=== PATIENT | female | born 1965 | race Caucasian/White ===

== ENCOUNTER 2017-01-25 17:55 | Emergency (ER) | payer MEDICAID ==
[2017-01-25 18:03] VITALS: RESP 18
--- NOTE | 2017-01-25 18:12 | CPEKG ---
Heart Rate: 66 RR Interval: 909 P-R Interval: 180 QRSD Interval: 78 QT Interval: 404 QTC Interval: 424 P [place]: 8 QRS [place]: -4 T Wave [place]: 27 EKG Severity - NORMAL ECG - EKG Impression: SINUS RHYTHM Electronically Signed By: Willard De La Rosa 25-Jan-2017 21:19:50
[2017-01-25 18:24] LABS: % IMMATURE GRANULYOCYTES 0.2 % (0.0-1.1); ABSOLUTE IMMATURE GRANULOCYTES 0.02 10^3/uL (0.00-0.10); ADD DIFF? NO; ADD MORPH? NO; ADD SCAN? NO; ATYPICAL LYMPHOCYTE FLAG 10 (0-99); FRAGMENT RBC FLAG 0 (0-99); HEMATOCRIT 41.6 % (38.0-47.0); HEMOGLOBIN 14.1 g/dL (12.6-16.3); LEFT SHIFT FLG 0 (0-99); LIPEMIA HEMOLYSIS FLAG 90 (0-99); MEAN CELL HEMOGLOBIN 30.3 pg (27.9-34.1); MEAN CELL HEMOGLOBIN CONCENTR. 33.9 g/dL (32.4-36.7); MEAN CELL VOLUME 89.3 fL (81.5-99.8); MEAN PLATELET VOLUME 9.4 fL (8.7-11.7); PLATELET CLUMPS FLAG 0 (0-99); PLATELET COUNT 285 10^3/uL (150-400); RED BLOOD CELL COUNT 4.66 10^6/uL (4.18-5.33); RED CELL DISTRIBUTION WIDTH 12.5 % (11.5-15.2)
--- NOTE | 2017-01-25 18:35 | EDPHY ---
H & P Smoking Status: Never smoked Time Seen by Provider: 01/25/17 18:09 HPI/ROS: CHIEF COMPLAINT: Dizzy, chest pain, near syncope HISTORY OF PRESENT ILLNESS: 51-year-old female presents to the emergency department complaining of feeling dizzy and having near syncopal episodes intermittently for the last several weeks. The patient denies any known trauma or injury. She states over last few days she has had left-sided chest pain. She denies shortness of breath. She did have a posterior headache earlier today although does not notice that now. She feels dizzy although it is not related to position changes. Denies neck or back pain. No reported history of trauma or car accident. REVIEW OF SYSTEMS: Constitutional: Dizziness as above. No fever, no chills. Eyes: No double or blurry vision. ENT: No sore throat. Respiratory: No cough, no shortness of breath. Cardiac: Chest pain as above Gastrointestinal: No abdominal pain, vomiting or diarrhea. Genitourinary: No dysuria. Musculoskeletal: No neck or back pain. Skin: No rashes. Neurological: No headache. (Wendy Cordova) Past Medical/Surgical History: Negative Family medical history: Paternal grandfather with myocardial infarction in his 40s. (Wendy Cordova) Social History: (Wendy Cordova) Physical Exam: General Appearance: Alert, no distress. Eyes: Pupils equal and round. Extraocular motions are all intact. No nystagmus. ENT: Mouth: Mucous membranes moist. Respiratory: No wheezing, rhonchi, or rales, lungs are clear to auscultation. Reproducible pain with palpation to the left anterior aspect of the chest just to the left of the sternal border. Cardiovascular: Regular rate and rhythm. Gastrointestinal: Abdomen is soft and nontender, no masses, no rebound or guarding, bowel sounds normal. Neurological: Alert and oriented x 3, cranial nerves II through XII grossly intact Skin: Warm and dry, no rashes. Musculoskeletal: Nontender to palpate along the cervical, thoracic or lumbar spine. Neck is supple. Extremities: Full range of motion and no peripheral edema. Psychiatric: Patient is oriented X 3, there is no agitation. (Wendy Cordova) Constitutional: Initial Vital Signs Temperature (C) 37.1 C 01/25/17 18:00 Heart Rate 76 07/26/17 18:00 Respiratory Rate 18 01/25/17 18:00 Blood Pressure 110/89 H 01/25/17 18:00 O2 Sat (%) 98 01/25/17 18:00 O2 Delivery Mode Room Air Allergies/Adverse Reactions: No Known Allergies Allergy (Unverified 01/25/17 18:00) Home Medications: Medication Instructions Recorded NK [No Known Home Meds] 01/25/17 Medical Decision Making - Diagnostics Imaging: Discussed imaging studies w/ bingo caller Radiologist, I viewed and interpreted images myself - Diagnostics EKG Interpretation: EKG interpreted by Dr. Sky Viera showing normal sinus rhythm. (Wendy Cordova) ED Course/Re-evaluation: 51-year-old female presents to the emergency department complaining of intermittent dizziness and near-syncope over last several weeks. An IV was established. Laboratory studies were all within normal limits. I did discuss case with Dr. Syk Viera, secondary supervising physician, who did not directly evaluate the patient but agrees with treatment and plan. He recommended CT imaging of her brain. CT scan of the brain reveals no obvious bleeding although there is some subtle hypodensity in the white matter. The radiologist recommended MRI of the brain. MRI of the brain reveals nonspecific white matter changes that are likely not acute. This does not seem consistent with multiple sclerosis. The patient was reassured. She was discharged and encouraged to have close follow-up with neurologist on-call. She was instructed to return to the emergency department if she developed any recurring dizziness or if she felt worse in any way. The patient did have reproducible pain with palpation left anterior aspect of her chest. I do not think further imaging is necessary. The patient does recall cranking the handle on the boat which may have caused some discomfort in her chest. Her pain in her chest is likely musculoskeletal in nature. This was discussed with the patient verbalized understanding and agreed. (Wendy Cordova) I did not see this patient while she was in the emergency department. However her care was discussed with the PA while the patient was in the department. I agree with treatment plan and management (Sky Viera) Differential Diagnosis: Chest pain including but not limited to myocardial ischemia, pulmonary embolus, chest wall pain, pleural inflammation and pulmonary infectious causes. Dizziness including but not limited to peripheral and central causes of vertigo , orthostatic causes including dehydration, and blood loss. (Wendy Cordova) - Data Points Laboratory Results: Laboratory Results 01/25/17 18:15 01/25/17 18:15 Departure - Departure Disposition: Home, Routine, Self-Care Clinical Impression: Near syncope, Dizziness Condition: Good Instructions: Near Syncope (ED), Dizziness (ED) Additional Instructions: Call to arrange follow-up to be seen by neurologist as discussed. Return to the emergency department if you develop any recurring pain in your chest, shortness of breath, or if you feel worse in any way. Referrals: Primo Gomes, [Medical Doctor] - 2-3 days, call for appt. (Neurologist)
[2017-01-25 18:44] LABS: ANION GAP 15 mEq/L (8-16); CALCIUM 9.4 mg/dL (8.5-10.4); CARBON DIOXIDE 23 mEq/l (22-31); CHLORIDE 101 mEq/L (97-110); GLOMERULAR FILTRATION RATE 58; GLUCOSE 92 mg/dL (70-100); POTASSIUM 3.5 mEq/L (3.5-5.2); SODIUM 139 mEq/L (134-144)
[2017-01-25 18:55] LABS: TROPONIN I < 0.012 ng/mL (0-0.034)
[2017-01-25 21:30] VITALS: BP 113/82; PULSE 74
[2017-01-25 22:24] VITALS: TEMP 97.9; O2SAT 95
== END 2017-01-25 22:32 | disposition home or self-care (01) ==
DX: R42 Dizziness and giddiness (principal); R55 Syncope and collapse